=== PATIENT | female | born 1960 ===

== ENCOUNTER 2020-06-04 11:31 | Outpatient (CLI) | payer OTHER | END 2020-06-04 18:00 | disposition home or self-care (01) | LOC: PPH VACUNA 11:31 | DX: Z23 Encounter for immunization (principal) ==

== ENCOUNTER 2021-03-02 08:00 | Outpatient (CLI) | payer OTHER | END 2021-03-02 08:30 | disposition home or self-care (01) | LOC: PPH VACUNA 08:00 | PROVIDERS: ATTEND Emergency Medicine Pediatric Emergency Medicine | DX: Z23 Encounter for immunization (principal) ==

== ENCOUNTER 2021-10-08 08:00 | Outpatient (CLI) | payer OTHER | END 2021-10-08 08:30 | disposition home or self-care (01) | LOC: PPH VACUNA 08:00 | PROVIDERS: ATTEND Emergency Medicine Pediatric Emergency Medicine | DX: Z23 Encounter for immunization (principal) ==